=== PATIENT | male | born 2000 | race African-American/Black ===

== ENCOUNTER 2023-08-12 00:20 | Inpatient (IN) | payer MEDICAID ==
[~2023-08-12] VITALS: Ht 185.4 cm; Wt 89.8 kg
[2023-08-12] MEDS: IPRATROPIUM BROMIDE (0.02%) 0.5MG/2.5ML NEB HHN STA (01:30)
[2023-08-12 01:31] VITALS: PULSE 118; RESP 20; O2SAT 100
[2023-08-12] MEDS: ALBUTEROL (0.083%) 2.5MG/3ML NEB HHN STA (01:31)
[2023-08-12] MEDS: METHYLPREDNISOLONE SOD SUCC 125MG/2ML (ACT-O-VIAL) IV STA (02:09)
[2023-08-12 02:15] LABS: BASOPHILS % 0.1 % (0.0-2.0); EOSINOPHILS % 0.3 % (0.0-5.0); HEMATOCRIT. 39.2 % (42.0-52.0); HEMOGLOBIN. 12.4 g/dL (14.0-18.0); LYMPHOCYTES % 12.1 % (20.0-50.0); MEAN CORPUSCULAR HEMOGLOBIN 26.4 pg (28.0-32.0); MEAN CORPUSCULAR HGB CONC 31.7 g/dL (31.0-37.0); MEAN CORPUSCULAR VOLUME 83.2 fL (80.0-94.0); MEAN PLATELET VOLUME 7.9 fl (7.4-10.4); MONOCYTES % 8.2 % (2.0-8.0); NEUTROPHILS % 79.3 % (40.0-76.0); PLATELET 373 x1000/uL (130-400); RED BLOOD CELL COUNT 4.72 mill/uL (4.7-6.1); RED CELL DISTRIBUTION WIDTH 17.5 % (11.6-14.6); WHITE BLOOD COUNT 14.6 x1000/uL (4.5-11.0)
[2023-08-12 02:21] LABS: ALANINE AMINOTRANSFERASE 45 IU/L (10-49); ALBUMIN 3.4 g/dL (3.2-4.8); ASPARTATE AMINOTRANSFERASE 127 IU/L (<34); BILIRUBIN TOTAL 0.5 mg/dL (0.1-1.0); CALCIUM 9.1 mg/dL (8.7-10.4); CARBON DIOXIDE 27 mEq/L (21-32); CHLORIDE 109 mEq/L (98-107); CREATININE 1.4 mg/dL (0.6-1.3); GLUCOSE 119 mg/dL (70-105); POTASSIUM 3.7 mEq/L (3.5-5.1); PROTEIN TOTAL 7.1 g/dL (6.0-8.3); SODIUM 143 mEq/L (136-145); UREA NITROGEN BLOOD 10 mg/dL (9-23)
[2023-08-12 03:03] LABS: TROPONIN I HIGH SENSITIVITY < 4 ng/L (3.0-53)
[2023-08-12] MEDS: ONDANSETRON HCL 4MG/2ML INJ IV STA (05:30)
[2023-08-12] MEDS: MORPHINE SULFATE 4 MG/ML CPJ (NOT FOR IM USE) IV STA (05:30)
[2023-08-12] MEDS ORDERED: CLONIDINE 0.1MG TABLET PO PRN (06:00)
[2023-08-12] MEDS ORDERED: IPRATROPIUM/ALBUTEROL 0.5-3(2.5)MG/3ML NEB HHN SCH (06:00)
[2023-08-12] MEDS ORDERED: MAGNESIUM/ALUMINUM HYDROXIDE/SIMETHICONE 30ML UDC PO PRN (06:00)
[2023-08-12 06:54] LABS: FERRITIN 166 ng/mL (22-322); FOLIC ACID (FOLATE) SERUM 15.16 ng/mL (>5.38); VITAMIN B12 SERUM 941 pg/mL (211-911)
[2023-08-12 07:10] LABS: IRON 32 ug/dL (65-175); TOTAL IRON BINDING CAPACITY 177 ug/dl (250-425)
[2023-08-12] MEDS: SODIUM CHLORIDE 0.9% 1,000 ML IV SCH (07:14)
[2023-08-12] MEDS: PANTOPRAZOLE SODIUM 40 MG/VIAL IV SCH (07:14)
[2023-08-12 07:53] LABS: D-DIMER 0.6 mg/L FEU (<0.50); INR 1.1; PROTHROMBIN TIME 12.6 sec (9.6-11.0)
[2023-08-12 09:00] VITALS: BP 95/63; PULSE 91; RESP 18; TEMP 97
[2023-08-12 12:00] VITALS: BP 99/66; PULSE 96; RESP 18; TEMP 97
[2023-08-12] MEDS: FERROUS SULFATE 325MG TABLET PO SCH (12:59)
[2023-08-12 16:00] VITALS: BP 103/65; PULSE 106; RESP 18; TEMP 96.8
[2023-08-12] MEDS ORDERED: SODIUM CHLORIDE 0.45% 1,000 ML IV SCH (17:00)
[2023-08-12] MEDS: ONDANSETRON HCL 4MG/2ML INJ IV PRN (22:29)
[2023-08-12 22:31] VITALS: BP 99/66; PULSE 96; RESP 18
[2023-08-12] MEDS: KETOROLAC 15MG/ML VIAL IV PRN (22:31)
[2023-08-12] MEDS: ENOXAPARIN 80MG/0.8ML SYR SUBCUT SCH (22:32)
[2023-08-12 22:33] VITALS: TEMP 97.7
[2023-08-12] MEDS: ACETAMINOPHEN 325MG TABLET PO PRN (22:33)
== END 2023-08-13 00:03 | disposition left against medical advice (07) | DRG 249 ==
LOC: ER 00:37 → 8WST 05:22 → EDBEDREQ 05:23
PROVIDERS: ADMIT Internal Medicine; ATTEND Internal Medicine
DX: K52.9 Noninfective gastroenteritis and colitis, unspecified (principal); N17.9 Acute kidney failure, unspecified; J45.901 Unspecified asthma with (acute) exacerbation; D63.8 Anemia in other chronic diseases classified elsewhere; K62.89 Other specified diseases of anus and rectum; Z53.29 Procedure and treatment not carried out because of patient's decision for other reasons; D72.829 Elevated white blood cell count, unspecified; N18.9 Chronic kidney disease, unspecified; K76.0 Fatty (change of) liver, not elsewhere classified; Z79.899 Other long term (current) drug therapy; Z90.49 Acquired absence of other specified parts of digestive tract; Z90.5 Acquired absence of kidney
CPT/HCPCS: 36415; 71045; 74176; 80053; 82607; 82728; 82746; 83540; 83550; 84145; 84484; 85025; 85379; 93005; 93306; 93970; 94644; 99285; C9113; J1650; J1885; J2270; J2405; J2930

== ENCOUNTER 2023-08-16 05:51 | Emergency (ER) | payer MEDICAID ==
[~2023-08-16] VITALS: Ht 177.8 cm; Wt 73.0 kg
[2023-08-16 06:04] VITALS: O2SAT 100
[2023-08-16] MEDS ORDERED: ONDANSETRON HCL 4MG/2ML INJ IV STA (06:20)
[2023-08-16] MEDS ORDERED: MORPHINE SULFATE 4 MG/ML CPJ (NOT FOR IM USE) IV STA (06:20)
[2023-08-16 08:15] LABS: BASOPHILS % 0.3 % (0.0-2.0); EOSINOPHILS % 1.3 % (0.0-5.0); HEMATOCRIT. 34.8 % (42.0-52.0); HEMOGLOBIN. 11.2 g/dL (14.0-18.0); LYMPHOCYTES % 13.3 % (20.0-50.0); MEAN CORPUSCULAR HEMOGLOBIN 26.6 pg (28.0-32.0); MEAN CORPUSCULAR HGB CONC 32.2 g/dL (31.0-37.0); MEAN CORPUSCULAR VOLUME 82.6 fL (80.0-94.0); MONOCYTES % 6.6 % (2.0-8.0); NEUTROPHILS % 78.5 % (40.0-76.0); PLATELET 390 x1000/uL (130-400); RED BLOOD CELL COUNT 4.21 mill/uL (4.7-6.1); RED CELL DISTRIBUTION WIDTH 17.4 % (11.6-14.6); WHITE BLOOD COUNT 11.2 x1000/uL (4.5-11.0)
[2023-08-16 08:36] LABS: INR 1.1; PROTHROMBIN TIME 11.8 sec (9.6-11.0)
[2023-08-16 09:10] LABS: ALANINE AMINOTRANSFERASE 34 IU/L (10-49); ALBUMIN 3.6 g/dL (3.2-4.8); ASPARTATE AMINOTRANSFERASE 20 IU/L (<34); BILIRUBIN TOTAL 0.2 mg/dL (0.1-1.0); CALCIUM 9.4 mg/dL (8.7-10.4); CARBON DIOXIDE 27 mEq/L (21-32); CHLORIDE 110 mEq/L (98-107); CREATININE 1.8 mg/dL (0.6-1.3); GLUCOSE 82 mg/dL (70-105); POTASSIUM 3.9 mEq/L (3.5-5.1); PROTEIN TOTAL 7.3 g/dL (6.0-8.3); SODIUM 144 mEq/L (136-145); UREA NITROGEN BLOOD 11 mg/dL (9-23)
[2023-08-16 09:13] LABS: ETHANOL BLOOD < 10 mg/dL (<10)
[2023-08-16] MEDS: ONDANSETRON HCL 4MG/2ML INJ IV SCH (09:56)
[2023-08-16] MEDS: MORPHINE SULFATE 4 MG/ML CPJ (NOT FOR IM USE) IV SCH (09:56)
[2023-08-16] MEDS: SODIUM CHLORIDE 0.9% 1,000 ML IV ONE (09:56)
[2023-08-16] MEDS: MORPHINE SULFATE 4 MG/ML CPJ (NOT FOR IM USE) IV ONE (13:26)
[2023-08-16] MEDS: IOHEXOL-300 100 ML BOTTLE ONE (14:26)
[2023-08-16 17:32] VITALS: TEMP 98.4
[2023-08-16 20:01] VITALS: BP 120/74; PULSE 100; RESP 17
[2023-08-16] MEDS: HYDROCODONE/ACETAMINOPHEN 5/325MG TABLET PO ONE (20:01)
[2023-08-19] MEDS ORDERED: IOHEXOL-300 100 ML BOTTLE ONE (12:07)
== END 2023-08-16 20:14 | disposition home or self-care (01) ==
LOC: ER 05:51
DX: R10.9 Unspecified abdominal pain (principal); J45.909 Unspecified asthma, uncomplicated
CPT/HCPCS: 80053; 80320; 83690; 85025; 85610; 86850; 86900; 86901; 36415; 71045; 74177; 93005; 96361; 96374; 96375; 96376; 99285; Q9967; J2405; J2270; J7030; Z7610 ×3; G0480

== ENCOUNTER 2025-01-03 11:11 | Emergency (ER) | payer MEDICAID ==
[~2025-01-03] VITALS: Ht 182.9 cm; Wt 77.0 kg
[2025-01-03 11:14] VITALS: BP 100/63; PULSE 65; RESP 16; TEMP 36.8; O2SAT 100
== END 2025-01-03 12:07 | disposition left against medical advice (07) ==
LOC: ER 11:11
DX: S01.01XA Laceration without foreign body of scalp, initial encounter (principal); S09.90XA Unspecified injury of head, initial encounter; G89.11 Acute pain due to trauma; J45.909 Unspecified asthma, uncomplicated; Z86.718 Personal history of other venous thrombosis and embolism; Z98.890 Other specified postprocedural states; W25.XXXA Contact with sharp glass, initial encounter; Y93.89 Activity, other specified; Y92.89 Other specified places as the place of occurrence of the external cause; Y99.8 Other external cause status
CPT/HCPCS: 99283; Z7610; A4606